=== PATIENT | female | born 1970 | race Caucasian/White ===

== ENCOUNTER 2017-10-09 17:21 | Emergency (ER) | payer SELFPAY ==
[~2017-10-09] VITALS: Ht 170.2 cm; Wt 58.0 kg
[2017-10-09 17:37] VITALS: TEMP 37.1; Ht 170.2 cm; Wt 58.0 kg
--- NOTE | 2017-10-09 17:38 | EMERGENCY ROOM VISIT NOTE ---
History Report prepared by Koltonibem: Esther Nava Under the Supervision of: Dr. Joey Contreras M.D. First contact with patient: 17:25 Stated Complaint: WEAKNESS/DIZZY History of Present Illness The patient is a 47 year old white female with a past medical history of hyperlipidemia who presents to the ED with a cc of worsening dizziness beginning earlier this morning. Movement and getting up from being seated worsens her symptoms. Positive cough, weakness, lightheadedness. Negative recent falls, vaginal bleeding, diarrhea, hematochezia, or urinary symptoms. She states she takes no daily medications. Source of History: patient Onset: this morning Position: other (global) Timing: worsening Modifying Factors (Worsening): movement Associated Symptoms: + weakness, No hematochezia, No diarrhea, No urinary symptoms Review of Systems See HPI for pertinent positives and negatives. A total of ten systems were reviewed and were otherwise negative. Past Medical & Surgical Medical Problems: (1) Hyperlipidemia Surgical Problems: (1) History of cholecystectomy Social History Smokeless Tobacco Use: No Alcohol Use: occasionally Drug Use: none Marital Status: single Housing Status: other (homeless) Occupation Status: employed Current/Historical Medications No Active Prescriptions or Reported Meds Allergies Coded Allergies: No Known Allergies (Unverified , 10/09/17) Physical Exam Vital Signs Date Time Temp Pulse Resp B/P (MAP) Pulse Ox O2 Delivery O2 Flow Rate FiO2 10/09/17 20:00 62 18 115/76 98 Room Air 10/09/17 18:00 72 18 118/72 75 120/76 77 145/76 10/09/17 18:00 98 Room Air 10/09/17 17:56 88 10/09/17 17:37 37.1 76 18 120/59 98 Room Air Physical Exam GENERAL: Awake, alert, well-appearing, NAD HENT: Normocephalic, atraumatic. EYES: Normal conjunctiva. Sclera non-icteric. NECK: Supple. No nuchal rigidity. FROM. RESPIRATORY: CTAB, no rhonchi, wheezing, crackles CARDIAC: RRR, systolic ejection murmur in aortic position, no MRG ABDOMEN: Soft, NTND, BS+ MSK: No chest wall TTP, no LE edema. No CVA tenderness to palpation. NEURO: CN 2-12 intact, 5/5 upper and lower extremity strength, no dysmetria, no drift, good finger to nose, no sensory deficits. SKIN: No rash or jaundice noted. Medical Decision & Procedures ER Provider Diagnostic Interpretation: Radiology results as stated below per my review and radiologist interpretation: CHEST ONE VIEW PORTABLE CLINICAL HISTORY: 47 years-old Female presenting with EVALUATE WEAKNESS. TECHNIQUE: Portable upright AP view of the chest was obtained. COMPARISON: None. FINDINGS: Cardiomediastinal silhouette normal. Lungs and pleural spaces clear. Osseous structures normal. Upper abdomen normal. IMPRESSION: 1. No acute cardiopulmonary disease. Electronically signed by: Maximino Parish M.D. 10/09/2017 6:28 PM Laboratory Results 10/09/17 18:10 Red Blood Count 4.37, Mean Corpuscular Volume 84.9, Mean Corpuscular Hemoglobin 26.1, Mean Corpuscular Hemoglobin Concent 30.7, Mean Platelet Volume 10.3, Neutrophils (%) (Auto) 65.7, Lymphocytes (%) (Auto) 22.9, Monocytes (%) (Auto) 7.9, Eosinophils (%) (Auto) 2.5, Basophils (%) (Auto) 0.7, Neutrophils # (Auto) 4.93, Lymphocytes # (Auto) 1.72, Monocytes # (Auto) 0.59, Eosinophils # (Auto) 0.19, Basophils # (Auto) 0.05 10/09/17 18:10 Test 10/09/17 18:10 10/09/17 20:25 White Blood Count 7.50 K/uL (4.8-10.8) Red Blood Count 4.37 M/uL (4.2-5.4) Hemoglobin 11.4 g/dL (12.0-16.0) Hematocrit 37.1 % (37-47) Mean Corpuscular Volume 84.9 fL (80-100) Mean Corpuscular Hemoglobin 26.1 pg (25-34) Mean Corpuscular Hemoglobin Concent 30.7 g/dl (32-36) Platelet Count 331 K/uL (130-400) Mean Platelet Volume 10.3 fL (7.4-10.4) Neutrophils (%) (Auto) 65.7 % Lymphocytes (%) (Auto) 22.9 % Monocytes (%) (Auto) 7.9 % Eosinophils (%) (Auto) 2.5 % Basophils (%) (Auto) 0.7 % Neutrophils # (Auto) 4.93 K/uL (1.4-6.5) Lymphocytes # (Auto) 1.72 K/uL (1.2-3.4) Monocytes # (Auto) 0.59 K/uL (0.11-0.59) Eosinophils # (Auto) 0.19 K/uL (0-0.5) Basophils # (Auto) 0.05 K/uL (0-0.2) RDW Standard Deviation 56.4 fL (36.4-46.3) RDW Coefficient of Variation 17.9 % (11.5-14.5) Immature Granulocyte % (Auto) 0.3 % Immature Granulocyte # (Auto) 0.02 K/uL (0.00-0.02) Prothrombin Time 10.1 SECONDS (9.0-12.0) Prothromb Time International Ratio 0.9 (0.9-1.1) Activated Partial Thromboplast Time 25.3 SECONDS (21.0-31.0) Partial Thromboplastin Ratio 1.0 Anion Gap 8.0 mmol/L (3-11) Est Creatinine Clear Calc Drug Dose 86.1 ml/min Estimated GFR () 111.8 Estimated GFR (Non- 96.5 BUN/Creatinine Ratio 14.0 (10-20) Calcium Level 8.7 mg/dl (8.5-10.1) Phosphorus Level 3.4 mg/dl (2.5-4.9) Total Bilirubin 0.2 mg/dl (0.2-1) Direct Bilirubin < 0.1 mg/dl (0-0.2) Aspartate Amino Transf (AST/SGOT) 20 U/L (15-37) Alanine Aminotransferase (ALT/SGPT) 23 U/L (12-78) Alkaline Phosphatase 103 U/L (45-117) Troponin I < 0.015 ng/ml (0-0.045) Total Protein 7.5 gm/dl (6.4-8.2) Albumin 3.8 gm/dl (3.4-5.0) Thyroid Stimulating Hormone (TSH) 5.970 uIu/ml (0.300-4.500) Free Thyroxine 0.94 ng/dl (0.80-1.60) Urine Color YELLOW Urine Appearance CLEAR (CLEAR) Urine pH 7.0 (4.5-7.5) Urine Specific [place] 1.014 (1.000-1.030) Urine Protein NEG (NEG) Urine Glucose (UA) NEG (NEG) Urine Ketones NEG (NEG) Urine Occult Blood 3+ (NEG) Urine Nitrite NEG (NEG) Urine Bilirubin NEG (NEG) Urine Urobilinogen NEG (NEG) Urine Leukocyte Esterase NEG (NEG) Urine WBC (Auto) 1-5 /hpf (0-5) Urine RBC (Auto) 10-30 /hpf (0-4) Urine Hyaline Casts (Auto) 0 /lpf (0-5) Urine Epithelial Cells (Auto) 10-20 /lpf (0-5) Urine Bacteria (Auto) NEG (NEG) Laboratory results reviewed by me Medications Administered Medications (Trade) Dose Ordered Sig/Olimpia Route Start Time Stop Time Status Last Admin Dose Admin Ondansetron HCl (Zofran Odt) 4 mg NOW STAT PO 10/09/17 19:41 10/09/17 19:42 DC 10/09/17 19:41 4 MG ECG Indication: weakness Rate (beats per minute): 73 Rhythm: normal sinus Findings: no ectopy, other (normal intervals, normal axis, no STS changes or T- wave inversions) ED Course 172: The patient was evaluated in room C9. A complete history and physical exam was performed. 1851: I reevaluated the patient. She is feeling better and resting comfortably. I discussed her results and discharge instructions and she verbalized complete understanding and agreement. Medical Decision The patient is a 47 year old white female with a past medical history of hyperlipidemia who presents to the ED with a cc of worsening dizziness beginning earlier this morning. Triage Nursing notes reviewed. The patient's presentation and history were concerning for weakness. Differential diagnosis: Etiologies such as metabolic, infection, hypo/hyperglycemia, electrolyte abnormalities, cardiac sources, intracerebral event, toxicologic, neurologic, as well as others were entertained. Patient was seen and evaluated the bedside. Patient is a homeless woman with a history of hyperlipidemia who presents from [place] with complaints of worsening dizziness beginning this morning. Patient states that she gets lightheaded mainly positional. Patient denies any focal weakness but is complaining of some generalized weakness she denies any infectious symptoms. Patient has no other medical problems has not taken alcohol tobacco or drugs. Patient did have blood work, EKG, troponin completed. Patient did not have a CT of the brain completed she had a nonfocal neurologic exam did not complain of any vertiginous-like symptoms. Patient's blood work was fairly unremarkable and patient was feeling improved. Patient's hemogram was 11. Patient did not have any coagulopathy. Patient did have noted elevated TSH. A free T4 was sent. I did talk to case management who gave her some outpatient resources given her undomiciled status for walk in clinic through [facility]. Patient was informed of all findings. Patient was amenable to the plan. Patient was feeling well. Patient was able to ambulate without issue. Patient was not feeling lightheaded. Patient tolerated by mouth. Patient was given strict follow-up, discharge, and return precautions. All questions were answered. Patient was deemed suitable for outpatient follow-up at this time. Patient agreed with the plan of care and was safely discharged home. Medication Reconcilliation Current Medication List: was personally reviewed by me Blood Pressure Screening Patient's blood pressure: Elevated blood pressure Blood pressure disposition: Referred to PCP Impression Primary Impression: Dizziness Additional Impressions: Weakness generalized Hypothyroidism Scribe Attestation The scribe's documentation has been prepared under my direction and personally reviewed by me in its entirety. I confirm that the note above accurately reflects all work, treatment, procedures, and medical decision making performed by me. Departure Information Dispostion Home / Self-Care Prescriptions No Active Prescriptions or Reported Meds Referrals No Doctor, Assigned (PCP) Patient Instructions Dehydration, Dizziness Balance Probs Fainting, ED Hypothyroidism, My [facility] Additional Instructions Please return to the emergency department if you have worsening or recurrent symptoms not amenable to at-home treatment. Please call for a follow-up appointment with her primary care physician. Please take your medications as prescribed. If you have other concerns and/or complaints please feel free to also call your primary care physician's office or return the ED for further evaluation, management, and treatment. Please maintain good hydration and avoid alcohol or caffeinated liquids as they may contribute to some of your dizziness. Take your medications as prescribed.. You have been examined and treated today on an emergency basis only. This is not a substitute for, or an effort to provide, complete comprehensive medical care. It is impossible to recognize and treat all injuries or illnesses in a single emergency department visit. It is therefore important that you follow up closely with [facility], your PCP, and/or your specialist(s). Call as soon as possible for an appointment. Thank you for your time and consideration. I look forward to speaking with you again soon. Please don't hesitate to call us if you have any questions. Problem Qualifiers Additional Impressions: Hypothyroidism Hypothyroidism type: unspecified Qualified Codes: E03.9 - Hypothyroidism, unspecified
[2017-10-09 18:00] VITALS: O2SAT 98
[2017-10-09 18:22] LABS: BASO % 0.7 %; BASO ABS # 0.05 K/uL (0-0.2); COMPLETE YES; EOS % 2.5 %; HEMATOCRIT 37.1 % (37-47); IG% 0.3 %; LYMPH % 22.9 %; LYMPH ABS # 1.72 K/uL (1.2-3.4); MEAN CELL VOLUME 84.9 fL (80-100); MEAN CORPUSCULAR HEMOGLOBIN 26.1 pg (25-34); MEAN CORPUSCULAR HGB CONC 30.7 g/dl (32-36); MEAN PLATELET VOLUME 10.3 fL (7.4-10.4); MONO % 7.9 %; NEUT % 65.7 %; PLATELET COUNT 331 K/uL (130-400); RED BLOOD COUNT 4.37 M/uL (4.2-5.4)
[2017-10-09 18:29] LABS: INR 0.9 (0.9-1.1); PROTHROMBIN TIME (PATIENT) 10.1 SECONDS (9.0-12.0)
--- NOTE | 2017-10-09 18:29 | DIAGNOSTIC IMAGING REPORT ---
CHEST ONE VIEW PORTABLE CLINICAL HISTORY: 47 years-old Female presenting with EVALUATE WEAKNESS. TECHNIQUE: Portable upright AP view of the chest was obtained. COMPARISON: None. FINDINGS: Cardiomediastinal silhouette normal. Lungs and pleural spaces clear. Osseous structures normal. Upper abdomen normal. IMPRESSION: 1. No acute cardiopulmonary disease. Electronically signed by: Maximino Parish M.D. 10/09/2017 6:28 PM Dictated Date/Time: 10/09/2017 6:28 PM
[2017-10-09 18:39] LABS: ALT/SGPT 23 U/L (12-78); BLOOD UREA NITROGEN 10 mg/dl (7-18); CALCIUM 8.7 mg/dl (8.5-10.1); CARBON DIOXIDE 26 mmol/L (21-32); CHLORIDE 106 mmol/L (98-107); CREATININE 0.74 mg/dl (0.60-1.20); GLUCOSE 84 mg/dl (70-99); POTASSIUM 3.8 mmol/L (3.5-5.1); SODIUM 140 mmol/L (136-145)
[2017-10-09 18:50] LABS: ALKALINE PHOSPHATASE 103 U/L (45-117); AST/SGOT 20 U/L (15-37); PHOSPHORUS 3.4 mg/dl (2.5-4.9)
[2017-10-09] MEDS ORDERED: ONDANSETRON 4MG OD TAB PO STA (19:41)
[2017-10-09 20:00] VITALS: BP 115/76; PULSE 62; O2SAT 98
[2017-10-09 20:36] LABS: URINE APPEARANCE CLEAR (CLEAR); URINE BILIRUBIN NEG (NEG); URINE COLOR YELLOW; URINE NITRITE NEG (NEG); URINE SPECIFIC GRAVITY 1.014 (1.000-1.030); UROBILINOGEN NEG (NEG)
[2017-10-09 20:38] LABS: MANUAL MICROSCOPIC REQUIRED? NO; REVIEW REQ? NO
== END 2017-10-09 20:36 | disposition home or self-care (01) ==
LOC: EDBD 17:21 → C.EDC 17:24
DX: R42 Dizziness and giddiness (principal); R53.1 Weakness; E03.9 Hypothyroidism, unspecified

== ENCOUNTER 2017-10-12 19:37 | Inpatient (IN) | payer SELFPAY ==
[~2017-10-12] VITALS: Ht 170.2 cm; Wt 58.0 kg
--- NOTE | 2017-10-12 19:56 | EMERGENCY ROOM VISIT NOTE ---
History Report prepared by Compa: Erin Connors Under the Supervision of: Dr. Jose Fuentes M.D. First contact with patient: 19:38 Chief Complaint: MENTAL HEALTH EVALUATION Stated Complaint: MHID History of Present Illness The patient is a 47 year old female who presents to the Emergency Room for a mental health evaluation. The patient was recently seen in the ED for dizziness and was discharged with anemia. She notes that she felt depressed and had "feelings of hopelessness" this morning. The patient is homeless and does not take any medications. She has never been to a counselor before. The patient came to [facility] on a [employer] bus 2 weeks ago from [place]. She states she was headed to [place]. She ate a hamburger earlier today. Source of History: patient Onset: this morning Position: other (generalized) Quality: other Modifying Factors (Relieving): other (none) Review of Systems See HPI for pertinent positives & negatives. A total of 10 systems reviewed and were otherwise negative. Past Medical & Surgical Medical Problems: (1) Anemia (2) Hyperlipidemia Surgical Problems: (1) History of cholecystectomy Family History No pertinent family history stated. Social History Smoking Status: Never Smoker Alcohol Use: occasionally Drug Use: none Marital Status: single Housing Status: other Occupation Status: employed Current/Historical Medications No Active Prescriptions or Reported Meds Allergies Coded Allergies: No Known Allergies (Unverified , 10/09/17) Physical Exam Vital Signs Date Time Temp Pulse Resp B/P (MAP) Pulse Ox O2 Delivery O2 Flow Rate FiO2 10/12/17 19:42 91 18 144/77 98 Room Air Physical Exam GENERAL: Patient is a healthy-appearing well-nourished female with pressured speech. HEAD: Normocephalic atraumatic EYES: Ocular movements intact pupils equal and react to light OROPHARYNX mucous membranes are moist no exudates present no erythema or edema present NECK: Supple no nuchal rigidity CHEST: Good equal expansion LUNGS: Clear and equal to auscultation CARDIAC: Normal S1 and S2 ABDOMEN: Soft nontender no guarding BACK: No CVA tenderness EXTREMITIES: No pain upon palpation normal muscle strength in all groups no clubbing cyanosis or edema NEURO: Patient is following commands and answering questions appropriately. Alert and oriented x3 Cranial Nerves 2-12 grossly intact Medical Decision & Procedures Laboratory Results 10/12/17 20:55 Red Blood Count 3.66, Mean Corpuscular Volume 84.4, Mean Corpuscular Hemoglobin 26.0, Mean Corpuscular Hemoglobin Concent 30.7, Mean Platelet Volume 10.8, Neutrophils (%) (Auto) 76.1, Lymphocytes (%) (Auto) 16.8, Monocytes (%) (Auto) 5.8, Eosinophils (%) (Auto) 0.8, Basophils (%) (Auto) 0.4, Neutrophils # (Auto) 5.63, Lymphocytes # (Auto) 1.24, Monocytes # (Auto) 0.43, Eosinophils # (Auto) 0.06, Basophils # (Auto) 0.03 10/12/17 20:55 Test 10/12/17 19:49 10/12/17 20:19 10/12/17 20:55 Urine Color YELLOW Urine Appearance CLEAR (CLEAR) Urine pH 5.0 (4.5-7.5) Urine Specific [place] 1.016 (1.000-1.030) Urine Protein NEG (NEG) Urine Glucose (UA) NEG (NEG) Urine Ketones NEG (NEG) Urine Occult Blood 2+ (NEG) Urine Nitrite NEG (NEG) Urine Bilirubin NEG (NEG) Urine Urobilinogen NEG (NEG) Urine Leukocyte Esterase NEG (NEG) Urine WBC (Auto) 1-5 /hpf (0-5) Urine RBC (Auto) >30 /hpf (0-4) Urine Hyaline Casts (Auto) 1-5 /lpf (0-5) Urine Epithelial Cells (Auto) 0-5 /lpf (0-5) Urine Bacteria (Auto) NEG (NEG) Urine Test NEG (NEG) Urine Opiates Screen NEG (NEG) Urine Methadone, Qualitative NEG (NEG) Urine Barbiturates NEG (NEG) Urine Phencyclidine (PCP) Level NEG (NEG) Ur Amphetamine/Methamphetamine NEG (NEG) MDMA (Ecstasy) Screen NEG (NEG) Urine Benzodiazepines Screen NEG (NEG) Urine Cocaine Metabolite NEG (NEG) Urine Marijuana (THC) NEG (NEG) Bedside Glucose 73 mg/dl (70-90) White Blood Count 7.40 K/uL (4.8-10.8) Red Blood Count 3.66 M/uL (4.2-5.4) Hemoglobin 9.5 g/dL (12.0-16.0) Hematocrit 30.9 % (37-47) Mean Corpuscular Volume 84.4 fL (80-100) Mean Corpuscular Hemoglobin 26.0 pg (25-34) Mean Corpuscular Hemoglobin Concent 30.7 g/dl (32-36) Platelet Count 330 K/uL (130-400) Mean Platelet Volume 10.8 fL (7.4-10.4) Neutrophils (%) (Auto) 76.1 % Lymphocytes (%) (Auto) 16.8 % Monocytes (%) (Auto) 5.8 % Eosinophils (%) (Auto) 0.8 % Basophils (%) (Auto) 0.4 % Neutrophils # (Auto) 5.63 K/uL (1.4-6.5) Lymphocytes # (Auto) 1.24 K/uL (1.2-3.4) Monocytes # (Auto) 0.43 K/uL (0.11-0.59) Eosinophils # (Auto) 0.06 K/uL (0-0.5) Basophils # (Auto) 0.03 K/uL (0-0.2) RDW Standard Deviation 54.1 fL (36.4-46.3) RDW Coefficient of Variation 17.3 % (11.5-14.5) Immature Granulocyte % (Auto) 0.1 % Immature Granulocyte # (Auto) 0.01 K/uL (0.00-0.02) Anion Gap 10.0 mmol/L (3-11) Est Creatinine Clear Calc Drug Dose 89.4 ml/min Estimated GFR () 119.6 Estimated GFR (Non- 103.2 BUN/Creatinine Ratio 25.2 (10-20) Calcium Level 8.7 mg/dl (8.5-10.1) Total Bilirubin 0.3 mg/dl (0.2-1) Direct Bilirubin 0.1 mg/dl (0-0.2) Aspartate Amino Transf (AST/SGOT) 25 U/L (15-37) Alanine Aminotransferase (ALT/SGPT) 24 U/L (12-78) Alkaline Phosphatase 65 U/L (45-117) Total Protein 7.1 gm/dl (6.4-8.2) Albumin 3.6 gm/dl (3.4-5.0) Thyroid Stimulating Hormone (TSH) 2.940 uIu/ml (0.300-4.500) Ethyl Alcohol mg/dL < 3.0 mg/dl (0-3) Labs reviewed by ED physician. ED Course 1942: Past medical records reviewed. The patient was evaluated in room A7. A complete history and physical examination was performed. 0008: The patient will be admitted to [address] [place] [address]. Medical Decision Differential diagnosis: Etiologies such as mood disorder, infection, hypoglycemia, electrolyte abnormalities, cardiac sources, intracerebral event, toxicologic, neurologic, as well as others were entertained. This is a 47-year-old female who presents emergency department complaining of feeling suicidal. The patient wishes to jump off a building. She is homeless and is passing through the area. Her hemoglobin is slightly lower than previous , however the patient reports she does have a history of anemia. She denies feeling weak or ill. She appears to have disordered thinking. I did discuss the case with case management who independently evaluated the patient. She was accepted 3 S. Blood Pressure Screening Patient's blood pressure: Elevated blood pressure Blood pressure disposition: Referred to PCP (will be evaluated by [address] [place] [address]) Impression Primary Impression: Mood disorder Scribe Attestation The scribe's documentation has been prepared under my direction and personally reviewed by me in its entirety. I confirm that the note above accurately reflects all work, treatment, procedures, and medical decision making performed by me. Departure Information Dispostion Admitted as an inpatient (to [address] [place] [address]) Prescriptions No Active Prescriptions or Reported Meds Referrals No Doctor, Assigned (PCP) Patient Instructions My [facility]
[2017-10-12 20:07] LABS: URINE APPEARANCE CLEAR (CLEAR); URINE BILIRUBIN NEG (NEG); URINE COLOR YELLOW; URINE EPITHELIAL CELL AUTO 0-5 /lpf (0-5); URINE NITRITE NEG (NEG); URINE SPECIFIC GRAVITY 1.016 (1.000-1.030); UROBILINOGEN NEG (NEG)
[2017-10-12 20:11] LABS: MANUAL MICROSCOPIC REQUIRED? NO; REVIEW REQ? NO
[2017-10-12 20:35] LABS: BENZODIAZEPINE, URINE NEG (NEG); COCAINE,URINE NEG (NEG); PHENCYCLIDINE, URINE NEG (NEG)
[2017-10-12 21:08] LABS: BASO % 0.4 %; BASO ABS # 0.03 K/uL (0-0.2); COMPLETE YES; EOS % 0.8 %; HEMATOCRIT 30.9 % (37-47); IG% 0.1 %; LYMPH % 16.8 %; LYMPH ABS # 1.24 K/uL (1.2-3.4); MEAN CELL VOLUME 84.4 fL (80-100); MEAN CORPUSCULAR HGB CONC 30.7 g/dl (32-36); MEAN PLATELET VOLUME 10.8 fL (7.4-10.4); MONO % 5.8 %; NEUT % 76.1 %; PLATELET COUNT 330 K/uL (130-400); RED BLOOD COUNT 3.66 M/uL (4.2-5.4)
[2017-10-12 21:38] LABS: BUN/CREATININE RATIO 25.2 (10-20); CALCIUM 8.7 mg/dl (8.5-10.1); CREATININE 0.7 mg/dl (0.60-1.20); POTASSIUM 3.7 mmol/L (3.5-5.1)
[2017-10-12 21:49] LABS: THYROID STIMULATING HORMONE 2.94 uIu/ml (0.300-4.500)
[2017-10-13] MEDS ORDERED: NURSING VERBAL MED ORDER ONE (00:15)
[2017-10-13 00:26] VITALS: O2SAT 98
[2017-10-13 00:35] VITALS: BP 117/56; PULSE 77; TEMP 36.6; Ht 170.2 cm; Wt 58.0 kg
[2017-10-13] MEDS ORDERED: MAGNESIUM HYDROXIDE SUSP 30 ML UDC PO PRN (01:00)
[2017-10-13] MEDS ORDERED: BISMUTH SUBSALICYLATE PER ML OMNICELL CHARGE PO PRN (01:00)
[2017-10-13] MEDS ORDERED: ACETAMINOPHEN 325 MG TAB PO PRN (01:00)
[2017-10-13] MEDS ORDERED: hydrOXYzine HCL 25 MG TAB PO PRN ×2 (01:00)
[2017-10-13] MEDS ORDERED: SODIUM CHLORIDE 0.65% NA SOLN 45 ML (OCEAN) PRN (01:00)
[2017-10-13] MEDS ORDERED: ALUMINUM/MAGNESIUM SUSP 30 ML UDC PO PRN (01:00)
[2017-10-13 07:03] VITALS: BP_SYST 103; BP_SYST 109; BP_DIAS 68; BP_DIAS 69; PULSE 75; PULSE 76; TEMP 37.1
--- NOTE | 2017-10-13 11:18 | Psychiatric History & Physical ---
History Date of Service Oct 13, 2017. Identifying Data Romy Waller is a 47-year-old female who is been homeless and traveling for many years, has no psychiatric history, and was admitted on a 201 voluntary commitment after she presented to the emergency room with worsening mood and suicidal thoughts with a plan to jump off a bridge or big building. Chief Complaint "I was experiencing kind of an overwhelming depression". History of Present Illness According to records, the patient presented to the emergency room for a mental health evaluation, stating that she had been feeling increasingly sad and depressed for 12 hours prior to admission, and had suicidal thoughts with a plan to "find a bridge somewhere or a big building to jump off of." She has been feeling stressed about her situation and her choice to live off the streets , and wondering if it was the best choice. She stated she "didn't have the will to live anymore." She described her mood as "paralyzed." She has only been in the [facility] for the past couple of weeks, and came here on a [employer] bus from [place] with a plan to go to [place]. She endorsed hopelessness and could not contract for safety outside of the hospital. She denied problems with appetite, weight changes, or sleep, and denied symptoms of panic, rivera, and psychosis. She was admitted voluntarily. She had also been seen in our emergency room several days ago, on 10/09/2011, for dizziness and weakness. She had comprehensive lab work, a chest x-ray, and an EKG, which were unremarkable. Although TSH was elevated (5.970), a free T4 was normal at 0.94. She was advised to follow up with a free walk-in clinic. Today, she states she felt mood was normal until yesterday morning, when she suddenly felt depressed and hopeless, with suicidal thoughts to jump off a bridge or building. She was concerned that she would act on them, but denies that she had a building or specific spot in mind. Denies that she ever had SI before. Prior to yesterday, states mood was happy and she was content with her life, enjoying her choice to "travel and see the world, living as a homeless person." Denies clear trigger or acute stressor. She has been living without a home for 30 years, by her choice, and has traveled all over the country. She was most recently in [place] She was in [place] for a while, then [place], then again for a few weeks. She stays in various places, sometimes [facility], sometimes sleeps outside on benches or "find a nook or cranny to bed down for the night." She travels by walking, bus, or with others if they offer rides. She does not work or collect income, but relies on food torres, clothing drops at churches, and danna for clothes and food. She says she chose this lifestyle because she "has an independent streak and loves to travel...I'm really enjoying being homeless." She has no friends or family that she in touch with. She has been sleeping on the street in [place], and wears extra layers to stay warm. She has been spending her days "just wandering around, exploring, taking long walks," and will go to a restaurant, get coffee, and do crossword puzzles. She will also go to libraries and read. She denies neurovegitative symptoms. Mood is improved today , "cheerful, I recognize my former self coming back." She denies SI since admission. She feels it has been helpful to speak to staff and peers here. She denies any history of HI, depression, rivera, psychosis or anxiety symptoms. She enjoys talking to people in her travels, but has no longstanding friends and does not desire a romantic relationship. She is thinking of moving on to [place] or [place], then to [place], [place], [place] and "just continue my lifestyle as before." Past Psychiatric History Current OP Treatment: no current treatment Prior OP Treatment: no prior treatment Prior Psych Hospitalizations: none Access to a Gun: No Suicide Attempts: No Past Medication Trials None. Past Medical/Surgical History History of Concussion/Seizure: No (1) Hyperlipidemia (2) Anemia Allergies Allergies: Coded Allergies: No Known Allergies (Unverified , 10/09/17) Home Medications No Active Prescriptions or Reported Meds Family History Patient does not know her family history as she is estranged. Alcohol Use Alcohol Use In Past 12 Months: No AUDIT Total Score: 0 Smoking Use Smoking Status: Never Smoker Substance History Denies ever abusing substances. Personal History Lives in: homeless since 1987 (when graduated ) and travels around the country Childhood: Born and raised in [place], [place]. She was an only child, and denies any traumatic events in her childhood, says it was "excellent, we had a lot of good times growing up." After graduation, she left home, and never returned. She has not spoken to them in 15 years, cannot explain why, "I guess it was an independence thing, wanted to go off on my own." Education: graduated from high school Work History: Unemployed; sometimes works at [employer] briefly while traveling, and relies on the danna of others. Relationship History: never Children: None Legal History: reported (multiple arrests for loitering, and has been in intermediate around 10 times) Psychological Trauma History: Denies Hx Traumatic Event Review of Systems 10 systems reviewed and are negative except as stated above. Examination Physical Examination A physical exam was performed in the ER prior to admission to the unit by Dr. Fuentes. I accept that physical as correct/medical clearance for the inpatient physical exam. Vital Signs Vital Signs Past 12 Hours Date Time Temp Pulse Resp B/P (MAP) Pulse Ox O2 Delivery O2 Flow Rate FiO2 10/13/17 07:03 37.1 76 18 109/69 75 103/68 10/13/17 00:35 36.6 77 18 117/56 10/13/17 00:26 77 18 117/56 98 Room Air Laboratory Results Last 24 Hours Test 10/12/17 19:49 10/12/17 20:19 10/12/17 20:55 Urine Color YELLOW Urine Appearance CLEAR Urine pH 5.0 Urine Specific [place] 1.016 Urine Protein NEG Urine Glucose (UA) NEG Urine Ketones NEG Urine Occult Blood 2+ Urine Nitrite NEG Urine Bilirubin NEG Urine Urobilinogen NEG Urine Leukocyte Esterase NEG Urine WBC (Auto) 1-5 /hpf Urine RBC (Auto) >30 /hpf Urine Hyaline Casts (Auto) 1-5 /lpf Urine Epithelial Cells (Auto) 0-5 /lpf Urine Bacteria (Auto) NEG Urine Test NEG Urine Opiates Screen NEG Urine Methadone, Qualitative NEG Urine Barbiturates NEG Urine Phencyclidine (PCP) Level NEG Ur Amphetamine/Methamphetamine NEG MDMA (Ecstasy) Screen NEG Urine Benzodiazepines Screen NEG Urine Cocaine Metabolite NEG Urine Marijuana (THC) NEG Bedside Glucose 73 mg/dl White Blood Count 7.40 K/uL Red Blood Count 3.66 M/uL Hemoglobin 9.5 g/dL Hematocrit 30.9 % Mean Corpuscular Volume 84.4 fL Mean Corpuscular Hemoglobin 26.0 pg Mean Corpuscular Hemoglobin Concent 30.7 g/dl Platelet Count 330 K/uL Mean Platelet Volume 10.8 fL Neutrophils (%) (Auto) 76.1 % Lymphocytes (%) (Auto) 16.8 % Monocytes (%) (Auto) 5.8 % Eosinophils (%) (Auto) 0.8 % Basophils (%) (Auto) 0.4 % Neutrophils # (Auto) 5.63 K/uL Lymphocytes # (Auto) 1.24 K/uL Monocytes # (Auto) 0.43 K/uL Eosinophils # (Auto) 0.06 K/uL Basophils # (Auto) 0.03 K/uL RDW Standard Deviation 54.1 fL RDW Coefficient of Variation 17.3 % Immature Granulocyte % (Auto) 0.1 % Immature Granulocyte # (Auto) 0.01 K/uL Sodium Level 139 mmol/L Potassium Level 3.7 mmol/L Chloride Level 103 mmol/L Carbon Dioxide Level 25 mmol/L Anion Gap 10.0 mmol/L Blood Urea Nitrogen 18 mg/dl Creatinine 0.70 mg/dl Est Creatinine Clear Calc Drug Dose 89.4 ml/min Estimated GFR () 119.6 Estimated GFR (Non- 103.2 BUN/Creatinine Ratio 25.2 Random Glucose 76 mg/dl Calcium Level 8.7 mg/dl Total Bilirubin 0.3 mg/dl Direct Bilirubin 0.1 mg/dl Aspartate Amino Transf (AST/SGOT) 25 U/L Alanine Aminotransferase (ALT/SGPT) 24 U/L Alkaline Phosphatase 65 U/L Total Protein 7.1 gm/dl Albumin 3.6 gm/dl Thyroid Stimulating Hormone (TSH) 2.940 uIu/ml Ethyl Alcohol mg/dL < 3.0 mg/dl Mental Examination During interview pt is: alert and oriented, cooperative Appearance: appropriately dressed, other (appears older than stated age, dressed in sweats, malodorous) Eye contact is: fair Motor behavior is: steady gait & station, no abnormal motor movements Speech: normal in rate, rhythm & volume Affect: euthymic, anxious, other (odd interpersonally) Mood is: other ("better") Thought process: goal directed, other (vague answers at times, often says "I can't be objective.") Thought content: reality based without delusions Suicidal thought are: denied Homicidal thoughts are: denied Hallucinations: denies auditory, denies visual Cognition: memory grossly intact, attention grossly intact, language grossly intact Intelligence estimated to be: consistent with level of education Insight: impaired Judgement: impaired Impression / Recommendations Impression Romy is a 47-year-old single white female with no psychiatric history who has been homeless and traveling the country for 30 years and she graduated high school, estranged from her parents from 15 years, and presented to the emergency room with acute onset of depression and suicidal thoughts to jump off a bridge or building. She is poorly able to describe precipitants for this, and mood has already improved. She does not meet criteria for a primary psychiatric disorder based on her report today, and likely will have a short hospitalization, but would benefit from a brief period of monitoring to ensure that mood and suicidal thoughts of stabilized and that she has a good safety plan. She presents as somewhat odd and eccentric, and really cannot explain some of the reasons for the choices that she is made, for example describes a very happy childhood and a previous good relationship with her parents, but then states she has not been in contact with them in 15 years. She doesn't meet criteria for a personality disorder based on her reports, although there are some schizoid features. She is planning to continue with her exploration of the [facility] part of the [facility] after discharge. Inventory Assets Strengths: Excited about ongoing travel, planning for the future Risk Factors Assessment : Yes /single/: Yes Higher / Fall in social status: No Access to guns: No Health problems: No Mental Health Diagnoses: No Substance use disorders: No Previous attempt: No Previous psychiatric stay: No Hopelessness: No Smoker: No Protective Factors Assessment : No Responsible for young children: No Employed: No Stable relationships: No Supportive family: No Good rapport with provider: No Recommendations (1) Mood disorder Mood disorder NOS - patient presented with acute onset of severe depression, hopelessness, and suicidal thoughts that started the day of presentation. She denies any acute stressors or triggers, and reports that mood is improving with support on the unit. She denies all other psychiatric symptoms, and does not appear to meet criteria for personality disorder based on her report. She is certainly somewhat odd and eccentric, having chosen to live as a homeless person and traveled the country for the past 30 years, and is estranged from her parents, although she denies any problems in their relationship. Although she does not have close friends or romantic partner, she enjoys talking to people she meets on her travels. For now, we will continue to observe her mood symptoms and we'll plan for discharge as early as tomorrow if she continues to improve. CPT Code Initial Hospital Care: 16920
[2017-10-14 06:48] VITALS: BP_SYST 103; BP_DIAS 64; BP_DIAS 67; PULSE 69; PULSE 74; TEMP 36.6
--- NOTE | 2017-10-14 11:15 | Discharge Instructions ---
Discharge Information Report Includes Report will include the: Discharge Instructions & Summary Admission Admission Date / Time: Oct 13, 2017 at 00:07 Reason for Admission: Major Depression Discharge Discharge Diagnosis / Problem: Adjustment disorder with depressed mood Condition at Discharge: Good Discharge Goals Goal(s): Improve function, Improve disease control, Therapeutic intervention Activity Recommendations Activity Limitations: per Instructions/Follow-up section . Instructions / Follow-Up Instructions / Follow-Up . SPECIAL CARE INSTRUCTIONS: 1. If depressive symptoms return, you should seek mental health care. 2. You are not prescribed psychotropic medications. 3. Utilize new healthy coping skills, anger management skills, and stress management skills learned during your hospitalization. Journal feelings and process them with a support person. Identify stressors or situations that may result in relapse, deterioration or inappropriate behaviors and develop a plan to deal with those issues. 4. If your coping skills are ineffective and you are in crisis, contact your outpatient providers for direction. If unable to reach your providers, please call the CAN HELP LINE AT or go to the closest Emergency Room. 5. Avoid alcohol and un-prescribed drugs. 6. You have been provided with the Mental Health Advance Directives Pamphlet for your review. AFTERCARE APPOINTMENTS: * Please call your insurance company prior to your scheduled appointment to confirm your aftercare providers are covered. Take your insurance information to your appointments. . Discharge / Aftercare Planning Primary Care Physician: Name: Ramos Therapist: Name Of Therapist: Ramos Counselor Aid: Name: Ramos . Follow-Up Care Plan for Follow-Up Care: No follow up scheduled - patient does not have a diagnosis requiring treatment and is not on medications. She is homeless and travels around the country, and declined outpatient therapy. Current Hospital Diet Patient's current hospital diet: Regular Diet Discharge Diet Recommended Diet: Regular Diet Procedures Procedures Performed: No Pending Studies Pending Studies at Discharge: No Medical Emergencies . Who to Call and When: Medical Emergencies: For questions or emergencies related to your hospital stay, please contact the Inpatient Behavioral Health Unit at [phone]. A medical billing service is on-call 21/06 for the Behavioral Health Unit for emergencies At any time you feel your situation is an emergency, you may also call 911 immediately. . Non-Emergent Contact Non-Emergency issues call your: Counselor Aid Past History Medical & Surgical History: (1) Anemia (2) Hyperlipidemia Advance Directives Existing Advance Directive: No Do You Have an Existing Mental: No Existing Living Will: No Existing Power of Pastry Supervisor: No Advance Directives Info Given: To Pt/S.O. Advance Directives Reason: Declines as Mental Health Visit. Discharge Summary Admission HPI Per the Admitting provider: According to records, the patient presented to the emergency room for a mental health evaluation, stating that she had been feeling increasingly sad and depressed for 12 hours prior to admission, and had suicidal thoughts with a plan to "find a bridge somewhere or a big building to jump off of." She has been feeling stressed about her situation and her choice to live off the streets , and wondering if it was the best choice. She stated she "didn't have the will to live anymore." She described her mood as "paralyzed." She has only been in the [facility] for the past couple of weeks, and came here on a [employer] bus from [place] with a plan to go to [place]. She endorsed hopelessness and could not contract for safety outside of the hospital. She denied problems with appetite, weight changes, or sleep, and denied symptoms of panic, rivera, and psychosis. She was admitted voluntarily. She had also been seen in our emergency room several days ago, on 10/09/2011, for dizziness and weakness. She had comprehensive lab work, a chest x-ray, and an EKG, which were unremarkable. Although TSH was elevated (5.970), a free T4 was normal at 0.94. She was advised to follow up with a free walk-in clinic. Today, she states she felt mood was normal until yesterday morning, when she suddenly felt depressed and hopeless, with suicidal thoughts to jump off a bridge or building. She was concerned that she would act on them, but denies that she had a building or specific spot in mind. Denies that she ever had SI before. Prior to yesterday, states mood was happy and she was content with her life, enjoying her choice to "travel and see the world, living as a homeless person." Denies clear trigger or acute stressor. She has been living without a home for 30 years, by her choice, and has traveled all over the country. She was most recently in [place] She was in [place] for a while, then [place], then again for a few weeks. She stays in various places, sometimes [employer], sometimes sleeps outside on benches or "find a nook or cranny to bed down for the night." She travels by walking, bus, or with others if they offer rides. She does not work or collect income, but relies on food torres, clothing drops at churches, and danna for clothes and food. She says she chose this lifestyle because she "has an independent streak and loves to travel...I'm really enjoying being homeless." She has no friends or family that she in touch with. She has been sleeping on the street in [place], and wears extra layers to stay warm. She has been spending her days "just wandering around, exploring, taking long walks," and will go to a restaurant, get coffee, and do crossword puzzles. She will also go to libraries and read. She denies neurovegitative symptoms. Mood is improved today , "cheerful, I recognize my former self coming back." She denies SI since admission. She feels it has been helpful to speak to staff and peers here. She denies any history of HI, depression, rivera, psychosis or anxiety symptoms. She enjoys talking to people in her travels, but has no longstanding friends and does not desire a romantic relationship. She is thinking of moving on to [place] or [place], then to [place], [place], [place] and "just continue my lifestyle as before. Admission Exam Per the Admitting provider: Please see admission H&P. Consultations None. Hospital Course (1) Mood disorder Mood disorder NOS - patient presented with acute onset of severe depression, hopelessness, and suicidal thoughts that started the day of presentation. She denies any acute stressors or triggers, and reports that mood is improving with support on the unit. She denies all other psychiatric symptoms, and does not appear to meet criteria for personality disorder based on her report. She is certainly somewhat odd and eccentric, having chosen to live as a homeless person and traveled the country for the past 30 years, and is estranged from her parents, although she denies any problems in their relationship. Although she does not have close friends or romantic partner, she enjoys talking to people she meets on her travels. For now, we will continue to observe her mood symptoms and we'll plan for discharge as early as tomorrow if she continues to improve. 10/14 - The patient's depressive symptoms and suicidal thoughts resolved completely in less than 24 hours. She does not meet criteria for a primary mood disorder, and the most appropriate diagnosis is adjustment disorder with depressed mood. She denies any acute stressors, and plans to continue with her transient lifestyle, declining formal outpatient follow-up. She is able to review her safety plan in detail, and is requesting discharge today. She declined offers to have a family meeting with her parents, and has been estranged from them for many years. Risk Factors Assessment : Yes /single/: Yes Higher / Fall in social status: No Health problems: No Mental Health Diagnoses: No Substance use disorders: No Previous attempt: No Previous psychiatric stay: No Hopelessness: No Smoker: No Protective Factors Assessment : No Responsible for young children: No Employed: No Stable relationships: No Supportive family: No Good rapport with provider: No Absence of risk factors above: Yes (risk factors were mitigated by admission to the inpatient unit, monitoring of mood and other symptoms, involving her in groups and therapy on the unit in which she was an active participant, offering a family meeting which she declined, offering referral for outpatient treatment , which she declined, and worked on healthy coping skills and her discharge safety plan. Her mood improved shortly after admission and she has consistently denied symptoms of depression and suicidal thoughts since that time. She is requesting discharge, and is no longer at acute risk of harm to herself, so can be discharged at this time.) Day of Discharge Assessment Hospital course: Patient was calm and cooperative throughout her stay. She had an unusual presentation, and that she has no psychiatric history, and reported acute onset of depressed mood and suicidal thoughts that lasted about 12 hours. Her symptoms resolved rapidly and completely in the hospital, and she consistently denied suicidal thoughts throughout her stay. Multiple staff attempted to explore the origin of the change in her mood, but she could not identify any stressors or exacerbating factors. She felt it was very helpful to be around other people, and attended and participated in all of the groups and therapy while she was on the unit. She was performing her ADLs independently, and did not require any prn medications. She declined offers to contact her parents, whom she has not spoken to in about 15 years, and denied that there was any specific reason for this, other than that she sees herself as an independent and self-sufficient person. She stated her plan was to continue her transient lifestyle, and denied any safety concerns with leaving the hospital. She was observed to be eating and sleeping well, with euthymic and appropriate affect, and was a very appreciative of the help she received in the hospital. Day of discharge assessment: The patient states that her mood is good, and denies all symptoms of depression , anxiety, psychosis, and rivera. She denies any thoughts of harming herself or anyone else, and is able to review her safety plan in case suicidal thoughts would recur. She states that his been very helpful for her to be around this group of people, as she feels supported and has been able to think about ways that she can be more resilient and self-reliant. Her mood is "I feel very very positive." She says she thought more about what might have contributed to the sudden change in her mood, and still cannot come up with anything that makes sense. She thinks that it must have been "something due to my energy flow, but it all came back together here." She is very much looking forward to leaving the hospital and continuing her travels up the [facility]. Then white female appearing older than her stated age. Casually dressed and adequately groomed. Calm and cooperative. Seated in NAD, with eye contact and no abnormal movements. Speech is normal rate, volume, and tone. Mood is "very, very positive," and affect is stable, euthymic, and congruent. Thoughts are linear, logical and goal directed. The patient denied suicidal and homicidal ideation and was able to safety plan. No paranoia, delusions, or hallucinations, and did not appear to be responding to internal stimuli. Cognition was grossly intact. Alert and oriented to person, place and time. Intelligence is consistent with level of education. Insight and and judgment are fair. Laboratory Test 10/12/17 19:49 10/12/17 20:19 10/12/17 20:55 Urine Color YELLOW Urine Appearance CLEAR Urine pH 5.0 Urine Specific [place] 1.016 Urine Protein NEG Urine Glucose (UA) NEG Urine Ketones NEG Urine Occult Blood 2+ Urine Nitrite NEG Urine Bilirubin NEG Urine Urobilinogen NEG Urine Leukocyte Esterase NEG Urine WBC (Auto) 1-5 Urine RBC (Auto) >30 Urine Hyaline Casts (Auto) 1-5 Urine Epithelial Cells (Auto) 0-5 Urine Bacteria (Auto) NEG Urine Test NEG Urine Opiates Screen NEG Urine Methadone, Qualitative NEG Urine Barbiturates NEG Urine Phencyclidine (PCP) Level NEG Ur Amphetamine/Methamphetamine NEG MDMA (Ecstasy) Screen NEG Urine Benzodiazepines Screen NEG Urine Cocaine Metabolite NEG Urine Marijuana (THC) NEG POC Glucose 73 White Blood Count 7.40 Red Blood Count 3.66 Hemoglobin 9.5 Hematocrit 30.9 Mean Corpuscular Volume 84.4 Mean Corpuscular Hemoglobin 26.0 Mean Corpuscular Hemoglobin Concent 30.7 Platelet Count 330 Mean Platelet Volume 10.8 Neutrophils (%) (Auto) 76.1 Lymphocytes (%) (Auto) 16.8 Monocytes (%) (Auto) 5.8 Eosinophils (%) (Auto) 0.8 Basophils (%) (Auto) 0.4 Neutrophils # (Auto) 5.63 Lymphocytes # (Auto) 1.24 Monocytes # (Auto) 0.43 Eosinophils # (Auto) 0.06 Basophils # (Auto) 0.03 RDW Standard Deviation 54.1 RDW Coefficient of Variation 17.3 Immature Granulocyte % (Auto) 0.1 Immature Granulocyte # (Auto) 0.01 Sodium Level 139 Potassium Level 3.7 Chloride Level 103 Carbon Dioxide Level 25 Anion Gap 10.0 Blood Urea Nitrogen 18 Creatinine 0.70 Est Creatinine Clear Calc Drug Dose 89.4 Estimated GFR () 119.6 Estimated GFR (Non- 103.2 BUN/Creatinine Ratio 25.2 Random Glucose 76 Calcium Level 8.7 Total Bilirubin 0.3 Direct Bilirubin 0.1 Aspartate Amino Transferase (AST) 25 Alanine Aminotransferase (ALT) 24 Alkaline Phosphatase 65 Total Protein 7.1 Albumin 3.6 Thyroid Stimulating Hormone (TSH) 2.940 Ethyl Alcohol mg/dL < 3.0 Total Time Total Time Spent (min): Greater than 30 minutes Total Time Included: examination of the patient, discharge planning, and ( discussion with the treatment team) Tobacco Cessation at Discharge Smoking Status: Never Smoker FDA approved Prescription: non-smoker
== END 2017-10-14 13:49 | disposition home or self-care (01) | DRG 885 ==
LOC: EDBD 19:37 → C.EDA 19:38 → C.MHU 10-13 00:07 → ENRESERV 10-13 00:21
PROVIDERS: ADMIT Psychiatry & Neurology Child & Adolescent Psychiatry; ATTEND Psychiatry & Neurology Psychiatry
DX: F39 Unspecified mood [affective] disorder (principal); E78.5 Hyperlipidemia, unspecified; D64.9 Anemia, unspecified; Z90.49 Acquired absence of other specified parts of digestive tract; Z59.0 Homelessness